=== PATIENT | female | born 1945 | race Caucasian/White ===

== ENCOUNTER 2023-04-26 08:02 | Outpatient (OUT) | payer MEDICARE, BC, SELFPAY ==
[2023-04-26 10:14] LABS: Alanine Aminotransferase 29 U/L (14-59); Aspartate Amino Transferase 22 U/L (15-37); Chol HDL Ratio 2.5; Cholesterol 175 mg/dL (<=200); HDL Cholesterol 70 mg/dL (40-60); Triglycerides 109 mg/dL (<=150); VLDL CHOLESTEROL 21.8 mg/dL
== END 2023-04-26 08:03 | disposition home or self-care (01) ==
LOC: LAB 08:02
PROVIDERS: PCP Family Medicine; Visit Provider Internal Medicine Cardiovascular Disease
DX: E78.5 Hyperlipidemia, unspecified (principal); Z91.81 History of falling
CPT/HCPCS: 36415; 80061; 84450; 84460

== ENCOUNTER 2023-07-30 07:49 | Outpatient (OUT) | payer MEDICARE, BC, SELFPAY ==
--- NOTE | 2023-07-30 07:59 | XR_ITS ---
[address] [address] Patient Name: KIRSTIN COREAS MRN: [id number] date: 1945 Sex: F Assigned Patient Location: [facility] Current Patient Location: [facility] Accession/Order Number: [id number] Exam Date: 07/30/2023 08:10 Report Date: 07/30/2023 09:08 At the request of: JOSE MANDUJANO Procedure: XR DEXA axial skeleton EXAMINATION: XR DEXA axial skeleton HISTORY: Osteoporosis M81.0 COMPARISON: DEXA bone densitometry 04/08/2020 TECHNIQUE: Dual-energy X-ray absorptiometry (DXA) was performed. FINDINGS: FOREARM ANALYSIS: Average bone mineral density is 0.484 g/cm2. T-score (standard deviation relative to young adult mean): -3.2 . -25.1% change since prior study. HIP ANALYSIS: Lowest bone mineral density is within the femoral neck, 0.807 g/cm2. T-score (standard deviation relative to young adult mean): -1.7 . -2.7% change since prior study. XR/XR DEXA axial skeleton IMPRESSION: [employer] [place] [employer] Classification: Osteoporosis - High Fracture Risk Electronically authenticated by: SELWYN PASCUAL Date: 07/30/2023 09:08
--- NOTE | 2023-07-30 07:59 | MM_ITS ---
Patient Name: KIRSTIN COREAS MR#: [id number] : 1945 Exam Date: 07/30/2023 Ordering Doctor: DR JOSE MANDUJANO M.D. RADIOLOGY REPORT PROCEDURE: MM TOMOSYNTHESIS SCREENING BI COMPARISON: MG MAMM SCREEN 3D EMMANUEL CAD, 07/23/2022. MG MAMM SCREEN 3D EMMANUEL CAD, 07/16/2021. MG MAMM SCREEN EMMANUEL W CAD, 04/08/2020. MAMMO POST BIOPSY UNILATERAL RIGHT, 11/11/2012. 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 LOCATION: [facility] BREAST COMPOSITION: Scattered areas fibroglandular density. FINDINGS: DIAGNOSTIC CATEGORY 2--BENIGN FINDING: RIGHT BREAST: No significant suspicious finding. Scattered benign-appearing calcifications are present. Scattered benign-appearing lymph nodes are present. Stable post biopsy scarring. No significant change has occurred. LEFT BREAST: No significant suspicious finding. Scattered benign-appearing lymph nodes are present. No significant change has occurred. RECOMMENDATIONS: ROUTINE MAMMOGRAM AND CLINICAL EVALUATION IN 12 MONTHS. PLEASE NOTE: A NORMAL MAMMOGRAM DOES NOT EXCLUDE THE POSSIBILITY OF BREAST CANCER. A CLINICALLY SUSPICIOUS PALPABLE LUMP SHOULD BE BIOPSIED. Dictated by: Ricky Gutierrez M.D. on 07/30/2023 at 13:54 Approved by: Ricky Gutierrez M.D. on 07/30/2023 at 14:03
--- NOTE | 2023-07-30 09:13 | CA_ITS ---
Patient Name: KIRSTIN COREAS MR#: [id number] : 1945 Exam Date: 07/30/2023 Ordering Doctor: DR JOSE MANDUJANO M.D. ECHOCARDIOGRAM REPORT PROCEDURE: CA ECHO DOPPLER COMPLETE INDICATIONS: Cardiac murmur, h/o myocardial infarction, hypertension COMPARISON: None. DESCRIPTION: COMPLETE ECHOCARDIOGRAM Real-time transthoracic echocardiography with 2D, M-mode, spectral and color flow Doppler performed. QUALITY: Technical quality was good. LEFT VENTRICLE: Normal chamber size. Proximal septal hypertrophy (sigmoid septum). LV EF: Global left ventricular systolic function is normal; visually estimated ejection fraction is 55 to 60%. No significant wall motion abnormalities. DIASTOLIC: Diastolic function is indeterminate. ATRIAL SEPTUM: Visually appears intact. LEFT ATRIUM: Severe dilatation. RIGHT ATRIUM: Mild dilatation. RIGHT VENTRICLE: Normal chamber size. Normal right ventricular systolic function. TRICUSPID VALVE: Normal mobility and thickness. No stenosis with trivial regurgitation. No evidence of pulmonary hypertension. RVSP 32 mmHg MITRAL VALVE: The posterior leaflet is thickened and calcified with reduced mobility. Moderate mitral annular calcification. Unable to assess presence of mitral stenosis due to lack of pressure gradients. Mild mitral regurgitation. AORTIC VALVE: Normal trileaflet appearance. Mildly calcified aortic valve. Normal leaflet mobility. No evidence of aortic valve stenosis. Mild aortic regurgitation. AORTIC ROOT: Normal diameter and appearance. PULMONIC VALVE: Normal thickness and mobility. No stenosis. Trivial regurgitation. PERICARDIUM: Anterior free space; trivial effusion versus fat pad. IVC: Collapses with inspirations. CONCLUSION: 1. Global left ventricular systolic function is normal; visually estimated ejection fraction is 55 to 60% 2. Right ventricle is normal in size and systolic function 3. Biatrial enlargement 4. Diastolic function is indeterminate 5. The posterior mitral leaflet is thickened and calcified with reduced mobility. 6. Mild mitral regurgitation 7. Mild aortic valve regurgitation 8. Anterior free space; trivial effusion versus fat pad Adult Echocardiography Procedure Report Left Ventricle LVEDD (3.7 - 5.6 cm): 4.98 cm LVESD (2.2 - 4.0 cm): 3.47 cm LVIVS thickness (0.6 - 1.2 cm): 0.91 cm LVPW thickness (0.5 - 1.0 cm): 1.00 cm e': 0.07 m/s E - e': 13.44 LVOT Max Gradient: 3.84 mm[Hg] LVOT Area (cm2): 0.98 m/s Peak Velocity (LVOT): 0.98 m/s LVOT Diameter 2.02 cm Left Atrium LA Volume Index (2D A2C): 56.43 ml/m2 Left Atrium Systolic Dimension: 3.71 cm Mitral Valve MV E to A Ratio: 0.92 Mitral Valve A-Wave Peak Velocity: 1.02 m/s Mitral Valve E-Wave Peak Velocity: 0.93 m/s Right Ventricle Aorta AO Root Diam: 2.88 cm Ascending Ao Diam: 3.05 cm Aortic Valve AoV Area (Peak Ambrocio): 2.29 cm2, 2.29 cm2 Peak Velocity(Antegrade Flow): 1.37 m/s Peak Gradient(Antegrade Flow): 7.46 mm[Hg] Tricuspid Valve Peak Velocity (Regurgitant Flow): 2.50 m/s, 2.53 m/s Pulmonic Valve Peak Velocity: 0.67 m/s Peak Gradient: 1.90 mm[Hg], 1.67 mm[Hg] Right Atrium Right Atrium Systolic Pressure: 46.44 ml, 46.44 ml Dictated by: Eddie Concepcion M.D. on 08/02/2023 at 17:02 Approved by: Eddie Concepcion M.D. on 08/02/2023 at 17:08
== END 2023-07-30 07:50 | disposition home or self-care (01) ==
LOC: MAMMO 07:49
PROVIDERS: PCP Family Medicine; Visit Provider Family Medicine
DX: R01.1 Cardiac murmur, unspecified (principal); M81.0 Age-related osteoporosis without current pathological fracture; Z12.31 Encounter for screening mammogram for malignant neoplasm of breast; Z80.3 Family history of malignant neoplasm of breast; I08.0 Rheumatic disorders of both mitral and aortic valves
CPT/HCPCS: 77063; 77067; 77080; 93306

== ENCOUNTER 2024-07-31 11:24 | Outpatient (OUT) | payer OTHER, SELFPAY ==
--- NOTE | 2024-07-31 11:27 | MM_ITS ---
Patient Name: KIRSTIN COREAS MR#: [id number] : 1945 Exam Date: 07/31/2024 Ordering Doctor: DR JOSE MANDUJANO M.D. RADIOLOGY REPORT PROCEDURE: MM TOMOSYNTHESIS SCREENING BI COMPARISON: MM TOMOSYNTHESIS SCREENING BI, 07/30/2023. MG MAMM SCREEN 3D EMMANUEL CAD, 07/23/2022. 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 LOCATION: [facility] BREAST COMPOSITION: There are scattered areas of fibroglandular density. FINDINGS: DIAGNOSTIC CATEGORY 2--BENIGN FINDING. NO CHANGE FROM COMPARISON. Scattered benign-appearing calcifications are present. Scattered benign-appearing nodules are present. RIGHT BREAST: No significant suspicious finding. Linear scar marker 12 o'clock right mid breast area of architectural distortion with calcifications and micro clip marker upper inner quadrant, posterior breast is stable. LEFT BREAST: No significant suspicious finding. RECOMMENDATIONS: ROUTINE MAMMOGRAM AND CLINICAL EVALUATION IN 12 MONTHS. PLEASE NOTE: A NORMAL MAMMOGRAM DOES NOT EXCLUDE THE POSSIBILITY OF BREAST CANCER. A CLINICALLY SUSPICIOUS PALPABLE LUMP SHOULD BE BIOPSIED. Dictated by: Raffaele Arciniega MD on 07/31/2024 at 13:00 Approved by: Raffaele Arciniega MD on 07/31/2024 at 13:02
== END 2024-07-31 11:25 | disposition home or self-care (01) ==
LOC: MAMMO 11:24
PROVIDERS: PCP Family Medicine; Visit Provider Family Medicine
DX: Z12.31 Encounter for screening mammogram for malignant neoplasm of breast (principal); Z85.3 Personal history of malignant neoplasm of breast; Z80.3 Family history of malignant neoplasm of breast
CPT/HCPCS: 77063; 77067

== ENCOUNTER 2025-08-02 10:27 | Outpatient (OUT) | payer OTHER, SELFPAY ==
--- OUTSIDE RECORDS SUMMARY | 2025-08-02 10:30 | XMS_ITS | Clinical Summary ---
Author Organization [facility] Address [address] [place] [address] Phone Care Team Providers Care Ios Architect Name Role Phone Nani Bianchi MD Primary Care Provider [phone] Allergies Active AllergyReactionsCriticalityNoted DateCommentsAce InhibitorsCough 08/18/20239576KitzyogyVolhs16/29/2023arvedilolDizziness,Other08/18/2023 Oxycodone-AcetaminophenConfusion,Udxfczuslbytah07/29/2023 Medications MedicationSigDispense QuantityRefillsLast FilledStart DateEnd DateStatus aspirin 81 mg EC tablet Take 1 tablet (81 mg) by mouth once daily.01/29/2022ctive celecoxib (CeleBREX) 200 mg capsule Take 1 capsule (200 mg) by mouth once daily.Active FLUoxetine (PROzac) 20 mg capsule Take 1 capsule (20 mg) by mouth once daily.12/25/2019Active latanoprost (Xalatan) 0.005 % ophthalmic solution Administer 1 drop into both eyes once daily at bedtime.11/02/2022ctive omeprazole (PriLOSEC) [address] capsule Take 1 capsule (20 mg) by mouth once daily in the morning. Take before meals. Active therapeutic mafkucsnriwn-tjrs-selrqsks (Theragran-M) tablet Take 1 tablet by mouth once daily.Active albuterol 90 mcg/actuation inhaler Inhale 2 puffs every 6 hours if needed for wheezing.Active biotin 5 mg tablet Take 1 tablet (5 mg) by mouth once daily.Active CALCIUM-VITAMIN D3-MAGNESIUM ORAL Take 1 tablet by mouth early in the morning..Active amLODIPine (Norvasc) 5 mg tablet Indications:Primary hypertensionTake 1 tablet (5 mg) by mouth once daily. 90 tablet 2:31 PM EDT15Active atorvastatin (Lipitor) 80 mg tablet Indications:Hyperlipidemia, unspecified hyperlipidemia typeTake 1 tablet (80 mg) by mouth once daily. 90 tablet 11:29 AM EDT/ctive Active Problems ProblemNoted DateDiagnosed DateBMI 26.0-26.9,adult02/06/2025Encounter for vitamin deficiency oefqgkanm98/20/2025Overweight with body mass index (BMI) of 27 to 27.9 in adult01/27/2024Former bdpwgh8701/27/2024rteriosclerosis of coronary cpzsuh7008/18/20238102Govxtzyuueugnc48/29/3435Rbgvqrqtpzrw15/29/2023alpitations 08/18/2023 Immunizations ImmunizationAdministration DatesNext DueFlu vaccine, trivalent, preservative free, HIGH-DOSE, age 65y+ (Fluzone)06/15/2022,06/03/2021,05/08/2020Influenza, Ynrjkvuvzzp26/01/2020,06/20/2019Pneumococcal conjugate vaccine, 13-valent (PREVNAR 13)09/20/2015Pneumococcal polysaccharide vaccine, 23-valent, age 2 years and older (PNEUMOVAX 23)09/20/2016 Social History Tobacco UseTypesPacks/DayYears UsedDateSmoking Tobacco: FormerCigarettes Smokeless Tobacco: NeverAlcohol UseStandard Drinks/WeekCommentsNot Currently0 (1 standard drink = 0.6 oz pure alcohol)CommentsUnknownSex and Gender InformationValueDate RecordedSex Assigned at BirthNot on fileLegal SexFemale 08/15/2022 5:16 AM ESTGender IdentityNot on fileSexual OrientationNot on file Last Filed Vital Signs Vital SignReadingTime TakenCommentsBlood Gmylpstc925/6005 11:13 AM EDT Dqvmo604102/06/2025 11:13 AM EDTTemperature--Respiratory Rate--Oxygen Saturation-- Inhaled Oxygen Concentration--Lpiigw83.4 kg (128 lb 12.8 oz)02/06/2025 11:13 AM CHXTjhfmu973.9 cm (4' 11 )02/06/2025 11:13 AM EDTBody Mass Index26.01002/06/2025 11:13 AM EDT Plan of Treatment DateTypeDepartmentCare Team (Latest Contact Info)Czjmdwksxyi89/27/2026 2:00 PM EDTOffice Visit [facility] [address] [facility] [address] [place] [address] Maty Hernandez MD [address] [place] [address] Health MaintenanceDue DateLast DoneCommentsLipid Panel3Diabetes Mgizwuudy62/13/1961DTaP/Tdap/Td Vaccines (1 - Tdap)Zoster Vaccines (2 of 3)RSV High Risk: (Elderly (60+) or Population) (1 - 1-dose 75+ series)2018Medicare Annual Wellness Visit (AWV), 07/21/2021, 03/14/2020, Additional history exists Influenza Vaccine (#1)/04/2024, 06/15/2023, 06/15/2022, Additional history existsCOVID-19 Vaccine ( season)/04/2024, 09/05/2023, 07/11/2022, Additional history existsBone Density Scan07/30/2025 07/30/2023, 04/08/2020, 04/08/2020, Additional history existsPneumococcal JzmljzzTvyeklsso33/01/2017, 09/20/2015, 06/17/2015, Additional history exists Welcome to Medicare KtnkjOuxurucazjdu67/17/2023, 07/21/2021, 03/14/2020, Additional history existsHIB VaccinesAged OutNo longer eligible based on patient's age to complete this topicHPV VaccinesAged OutNo longer eligible based on patient's age to complete this topicHepatitis A VaccinesAged OutNo longer eligible based on patient's age to complete this topicHepatitis B VaccinesAged OutNo longer eligible based on patient's age to complete this topicIPV Vaccines Aged OutNo longer eligible based on patient's age to complete this topic Meningococcal VaccineAged OutNo longer eligible based on patient's age to complete this topicRotavirus VaccinesAged OutNo longer eligible based on patient's age to complete this topic Insurance Care Teams Team MemberRelationshipSpecialtyStart DateEnd Date Nani Bianchi MD [address] [facility] [address] [place] [address] [facility]09/20/05
--- OUTSIDE RECORDS SUMMARY | 2025-08-02 10:30 | XMS_ITS | Clinical Summary ---
Author Organization [facility] Healthcare Address [address] [place] [address] Care Team Providers Care Gasoline Attendant Name Role Phone Nani Bianchi MD Primary Care Provider [phone] Nani Bianchi MD Unavailable Allergies Active AllergyReactionsCriticalityNoted HnlyDsudzhyqLuozwiapXwzzr76/29/2023 CarvedilolDizziness,Other08/18/20235745VnyqlmrfluGatqHcn84/16/2023Metronidazole 07/05/2023 Other Reaction(s): Unknown Oxycodone-AcetaminophenOther,Wroyyypasygxxr22/29/2023 Medications MedicationSigDispense QuantityRefillsLast FilledStart DateEnd DateStatus amLODIPine (Norvasc) 5 MG tablet Take 5 mg by mouth in the morning.02/24/2023ctive aspirin 81 MG chewable tablet 1 (one) time each day at the same time.Active biotin 1000 MCG tablet 1 (one) time each day at the same time.Active omeprazole (PriLOSEC) [address] capsule 1 capsule 1 (one) time each day at the same time.Active latanoprost (Xalatan) 0.005 % ophthalmic solution 1 drop at bedtime.Active Multiple Vitamin (Thera-Tabs) tablet Take 1 tablet by mouth in the morning.Active Jlargck-Bjfvgayrz-Pzkdlzd D (CALCIUM 1200+D3 PO) Take by mouthActive ascorbic acid (Vitamin C) 500 MG ER capsule Take 500 mg by mouth DailyActive albuterol HFA 90 mcg/act inhaler Indications:Former smokerINHALE 1 PUFF BY MOUTH EVERY 4 HOURS NEEDED 8.5 g ctive celecoxib (CeleBREX) 200 MG capsule Indications:Chronic right shoulder painTAKE 1 CAPSULE BY MOUTH IN THE MORNING 100 capsule ctive FLUoxetine (PROzac) 20 MG capsule Indications:Depressive disorderTAKE 1 TABLET BY MOUTH IN THE MORNING 100 capsule ctive atorvastatin (Lipitor) 80 MG tablet Indications:Pure hypercholesterolemiaTake 1 tablet (80 mg) by mouth at bedtime 90 tablet 01/22/2025tive Active Problems ProblemNoted DateDiagnosed DateMajor depressive disorder, single episode, in full iwbpasibb25/16/2025 Assessment & Plan (06/05/2025 10:41 AM EDT): This is a chronic medical condition that is stable since last assessment. No changes in treatment are suggested at this time. Continue Current meds. History of breast pvxgvq7104/28/2024Overweight with body mass index (BMI) of 27 to 27.9 in adult01/27/2024Former jbkdty2101/27/2024bnormal glucose tolerance test 07/06/2023Other yckjsyz7707/06/2023 Assessment & Plan (07/06/2023 2:33 PM EDT): CBC ordered B12 supplements Routine general medical examination at health care nhyzfvcf20/17/2023 Assessment & Plan (06/05/2025 10:40 AM EDT): Colonoscopy every 10 years or Cologuard every 3 years ages 50-75 Flu Vaccine yearly Pneumovax and Prevnar Mammo yearly for women and PSA yearly for men Labs/Screening yearly to rule out Diabetes, Chronic Kidney disease and liver disease Hepatitis Screen forat risk populations Shingles vaccine after65 if indicated Tetanus Vaccine every 10 years Lipids yearly under the age of 75 If Smoking history: one time CT scan of chest and Ultrasound of Aorta to screen for Anuerysm Assessment & Plan (05/15/2024 9:43 AM EDT): Colonoscopy every 10 years or Cologuard every 3 years ages 50-75 Flu Vaccine yearly Pneumovax and Prevnar Mammo yearly for women and PSA yearly for men Labs/Screening yearly to rule out Diabetes, Chronic Kidney disease and liver disease Hepatitis Screen forat risk populations Shingles vaccine after65 if indicated Tetanus Vaccine every 10 years Lipids yearly under the age of 75 If Smoking history: one time CT scan of chest and Ultrasound of Aorta to screen for Anuerysm Mucopurulent chronic ahlrivjcla55/17/2023Murmur, etblxow6107/06/2023rthritis of glenohumeral joint07/05/2023rthritis of left acromioclavicular joint07/05/2023 Benign essential srguarlnktjz28/16/2023 Assessment & Plan (05/15/2024 9:42 AM EDT): Our specific goals, for your hypertension, is to keep your blood pressure less than 140/90, and theimportance of weight control. We made recommendations on how to control your blood pressure, and minimize your risk of these copmplications. We also discussed your current barriers to a healthy living and importance of healthy diet and exercise. Prior to your visit today we have reviewed your chart and formed a plan to assist with providing you the best possible care. We reviewed the possible complications of hypertension including, stroke, heart failure and kidney impairment. In addition, we discussed your medications, the importance of taking them as prescribed. [employer] diet handouts Assessment & Plan (07/06/2023 2:32 PM EDT): Our specific goals, for your hypertension, is to keep your blood pressure less than 140/90, and theimportance of weight control. We made recommendations on how to control your blood pressure, and minimize your risk of these copmplications. We also discussed your current barriers to a healthy living and importance of healthy diet and exercise. Prior to your visit today we have reviewed your chart and formed a plan to assist with providing you the best possible care. We reviewed the possible complications of hypertension including, stroke, heart failure and kidney impairment. In addition, we discussed your medications, the importance of taking them as prescribed. [employer] diet handouts Degenerative disc disease, pjecqh274836Vpudzjdo42/16/2023 Assessment & Plan (07/06/2023 2:37 PM EDT): Sees building specialist Has eye drops Chronic right shoulder pain07/05/2023 Assessment & Plan (07/06/2023 2:32 PM EDT): Celecoxib sent in Primary osteoarthritis, right sowhhjkp56/16/2023ure hypercholesterolemia 07/05/2023 Assessment & Plan (05/15/2024 9:42 AM EDT): Labs ordered This is a chronic medical condition that is stable since last assessment. No changes in treatment are suggested at this time. Continue Current meds. Assessment & Plan (07/06/2023 2:33 PM EDT): Continue Atorvastatin This is a chronic medical condition that is stable since last assessment. No changes in treatment are suggested at this time. S/p reverse total shoulder putlvxopuvbq49/16/2023Scoliosis of thoracolumbar spine07/05/20235989Srrgnwa40/11/2023oronary znknofgrrrqkekm42/03/2012 Cardiomyopathy, vblomvidhkw30/03/2012 Assessment & Plan (06/05/2025 10:40 AM EDT): This is a chronic medical condition that is stable since last assessment. No changes in treatment are suggested at this time. Continue Current meds. F/Up with Cardiology as scheduled Assessment & Plan (05/15/2024 9:44 AM EDT): Control BP and currently no CHF sxs Gastroesophageal reflux krzcvvv9601/21/2012Chronic ischemic heart disease 01/21/20124763Ircpbswazvbz05/13/2008Depressive qegybgqe48/21/2008 Resolved Problems ProblemNoted DateDiagnosed DateResolved Date3-vessel CAD/05/2024 Armbovhyt85/05/2024Malignant neoplasm of breast (female)05/10/2008 04/28/2024 Encounters DateTypeDepartmentCare SrnuAfloezbuojb09/18/2025bstract [facility] [address] [place] [address] Nani Bianchi MD 06/05/2025 10:30 AM EDTOffice Visit [facility] [address] [place] [address] Nani Bianchi MD Routine general medical examination at health care facility (Primary Dx); Major depressive disorder, single episode, in full remission ; Cardiomyopathy, unspecified (HCC); Encounter for immunization; Estrogen deficiency; Encounter for screening mammogram for breast kpxnwz2406/05/2025amboo flowsheet [facility] [address] [place] [id number] Nani Bianchi MD 06/05/2025Travelfrom Last 3 Months Immunizations ImmunizationAdministration DatesNext DueInfluenza, High Dose Seasonal, Preservative Free06/27/2024,06/28/2018,06/25/2017Influenza, High-dose Seasonal, Quadrivalent, Preservative Free06/05/2025,06/15/2023,06/15/2022,06/03/2021 Influenza, injectable, quadrivalent, preservative free07/19/2017,06/17/2015 Influenza, seasonal, titbjcalvs67/01/2020,05/08/2020,07/10/2003Influenza, seasonal, intradermal, preservative free06/20/2016,06/12/2014Pneumococcal Conjugate PCV 13009/20/2015,06/17/2015Pneumococcal Polysaccharide PPSV23 09/20/2016,06/20/20137950ABCL-RKV-8 (COVID-19) vaccine, mRNA, spike protein, LNP, bivalent, preservative free, 30 mcg/0.3 mLdose, denice-sucrose formulation 07/11/2022TD (adult), 2 Lf tetanus toxoid, preservative free, ufeyfxpk23/28/2012 Zoster, live06/20/2013 Family History Medical HistoryRelationNameCommentsHeart diseaseFatherHypertensionFatherHeart diseaseMotherRelationNameStatusCommentsFatherDeceasedMotherDeceased Social History Tobacco UseTypesPacks/DayYears UsedDateSmoking Tobacco: NeverSmokeless Tobacco: NeverAlcohol UseStandard Drinks/WeekCommentsYes1 (1 standard drink = 0.6 oz pure alcohol)caffeine: coffee,teaPHQ-2AnswerDate RecordedPatient Health Questionnaire-2 Yiiig765CommentsUnknownSex and Gender InformationValueDate RecordedSex Assigned at WyhshJeegnu41/21/2023 8:38 AM EDT Legal KksPuxgts92/15/2023 6:35 PM EDTGender LydeowxkDhpevk05/21/2023 8:38 AM EDT Sexual DflgkwzppktGwbhqcha24/21/2023 8:38 AM EDT Last Filed Vital Signs Vital SignReadingTime TakenCommentsBlood Ldopmrkl063/66006/05/2025 10:22 AM EDT Uvvmk771006/05/2025 10:22 AM EVZKqrqygqieid03.6 ??C (99.7 ??F)04/28/2024 10:59 AM EDTRespiratory Gifj9884 10:59 AM EDTOxygen Lajjfgacxf53%06/05/2025 10:22 AM EDTInhaled Oxygen Concentration--Muyfrd92.4 kg (120 lb)06/05/2025 10:22 AM NCKXkuiyp862.9 cm (4' 11 )06/05/2025 10:22 AM EDTBody Mass Index24.24006/05/2025 10:22 AM EDT Plan of Treatment Health MaintenanceDue DateLast DoneCommentsCOVID-19 Vaccine ( season) , 12/27/2021, 06/14/2021, Additional history existsMedicare Annual Wellness (AWV), 05/15/2024, 07/06/2023neumococcal Vaccine: 65+ OpsccLyppgrgyk05/01/2017, 09/20/2015, 06/17/2015, Additional history existsInfluenza LgazmynXhzqqhxbx80/16/2025, 06/27/2024, 06/15/2023, Additional history exists Procedures Procedure NamePriorityDate/TimeAssociated DiagnosisCommentsVITAMIN D 1,25 GQQLDOWVKRhajawe36/24/2025 8:58 AM EDT Routine general medical examination at health care facility Cardiomyopathy, unspecified (HCC) LIPID XLFZHPvcgykn74/24/2025 8:58 AM EDT Routine general medical examination at [facility] Cardiomyopathy, unspecified (HCC) COMPREHENSIVE METABOLIC VHADDLpnefxr85/24/2025 8:58 AM EDT Routine general medical examination at [facility] Cardiomyopathy, unspecified (HCC) QZGIfrohpt23/24/2025 8:58 AM EDT Routine general medical examination at [facility] Cardiomyopathy, unspecified (HCC) from Last 3 Months Results * Vitamin D 1,25 dihydroxy (06/13/2025 8:58 AM EDT)ComponentValueRef RangeTest MethodAnalysis TimePerformed AtPathologist SignatureVITAMIN D, 1,25 (OH)2, WEAGN6742 - 72 pg/mLQUESTVITAMIN D3, 1,25 (OH)232pg/mLQUESTVITAMIN D2, 1,25 (OH)2<8pg/mLQUESTComment: Vitamin D3, 1,25(OH)2 indicates both endogenous production and supplementation. Vitamin D2, 1,25(OH)2 is an indicator of exogenous sources, such as diet or supplementation. ??Interpretation and therapy are based on measurement of Vitamin D,1,25(OH)2, Total. This test was developed and its analytical performance characteristics have been determined by [facility] [place], [place]. It has not been cleared or approved by the FDA. This assay has been validated pursuant to the CLIA regulations and is used for clinical purposes. Specimen (Source)Anatomical Location / LateralityCollection Method / Volume Collection TimeReceived TimeBloodVenous blood specimen / Ykvifig1106/13/2025 8:58 AM EDT06/13/2025 3:38 PM EDT Narrative [facility] - 06/17/2025 3:56 PM EDT FASTING:YES FASTING: YES Resulting Agency Comment Performing Organization Information ?Site ID: AMD ?Name: [facility] ?Address: [address] [place] [address] [place], [place] ?Director: Luis Antonio Simon M.D.,PhD Authorizing ProviderResult TypeResult StatusNani RAMIREZ BLOOD ORDERABLES Final ResultPerforming OrganizationAddressCity/State/ZIP CodePhone Number [facility] * (ABNORMAL) CBC (06/13/2025 8:58 AM EDT)ComponentValueRef RangeTest Method Analysis TimePerformed AtPathologist SignatureWHITE BLOOD CELL COUNT4.63.8 - 10.8 Thousand/uLQUESTRED BLOOD CELL COUNT3.913.80 - 5.10 Million/uLQUEST SCQYZIRMEE93.6(L)11.7 - 15.5 g/xPQSCVCBNZEKEQGQK80.535.0 - 45.0 %WXNIWWEQ93.8 80.0 - 100.0 mHCQVFLDDG88.727.0 - 33.0 xcIQOSCNVBQ66.732.0 - 36.0 g/dLQUEST Comment: For adults, a slight decrease in the calculated MCHC value (in the range of 30 to 32 g/dL) is most likely not clinically significant; however, it should be interpreted with caution in correlation with other red cell parameters and the patient's clinical condition. RDW12.511.0 - 15.0 %QUESTPLATELET YFLRR272178 - 400 Thousand/bXLNEMXLVS11.57.5 - 12.5 fLQUESTSpecimen (Source)Anatomical Location / LateralityCollection Method / VolumeCollection TimeReceived TimeBloodVenous blood specimen / Ssaknmz9306/13/2025 8:58 AM EDT06/13/2025 3:38 PM EDT Narrative [facility] - 06/17/2025 3:56 PM EDT FASTING:YES FASTING: YES Resulting Agency Comment Performing Organization Information ?Site ID: QTW ?Name: [facility] ?Address: [address] [place] [phone] ?Director: Lary Adkins Authorizing ProviderResult TypeResult StatusNani RAMIREZ BLOOD ORDERABLES Final ResultPerforming OrganizationAddressCity/State/ZIP CodePhone Number [facility] * Lipid panel (06/13/2025 8:58 AM EDT)ComponentValueRef RangeTest MethodAnalysis TimePerformed AtPathologist SignatureCHOLESTEROL, TIVGW331<200 mg/dLQUESTHDL XWUHWMUXNZZ80> OR = 50 mg/mMNIBLYPXIZNTASGRJSR75<150 mg/dLQUESTLDL CHOLESTEROL 51mg/dL (calc)QUESTComment: Reference range: <100 Desirable range <100 mg/dL for primary prevention; <70 mg/dL for patients with CHD or diabetic patients with > or = 2 CHD risk factors. LDL-C is now calculated using the Brayden calculation, which is a validated novel method providing better accuracy than the Friedewald equation in the estimation of LDL-C. Uvaldo SS et al. CHANDLER. 2013;310(19): 5069-0880 (http://education.[employer]/faq/WAB758) CHOL/HDLC RATIO2.2<5.0 (calc)QUESTNON HDL MBQIJWOTFHO36<130 mg/dL (calc)QUEST Comment: For patients with diabetes plus 1 major ASCVD risk factor, treating to a non-HDL-C goal of <100 mg/dL (LDL-C of <70 mg/dL) is considered a therapeutic option. Specimen (Source)Anatomical Location / LateralityCollection Method / Volume Collection TimeReceived TimeBloodVenous blood specimen / Dzvemjl6506/13/2025 8:58 AM EDT06/13/2025 3:38 PM EDT Narrative [facility] - 06/17/2025 3:56 PM EDT FASTING:YES FASTING: YES Resulting Agency Comment Performing Organization Information ?Site ID: QPT ?Name: [facility] ?Address: [address] [place] [address], [address] [place] [phone] ?Director: Salvatore Viera MD Authorizing ProviderResult TypeResult StatusNani Bianchi MDLAB BLOOD ORDERABLES Final ResultPerforming OrganizationAddressCity/State/ZIP CodePhone Number [facility] * Comprehensive metabolic panel (06/13/2025 8:58 AM EDT)ComponentValueRef Range Test MethodAnalysis TimePerformed AtPathologist VwcbzqlrnXvepupz2985 - 99 mg/dLQUESTComment: ? Fasting reference interval BUN97 - 25 mg/dLQUESTCreatinine0.660.60 - 0.95 mg/sMAVDNVGVJX37> OR = 60 mL/min/1.60j6CCTZSIFU/CREATININE RATIOSEE NOTE: (calc)QUESTComment: ?? Not Reported: BUN and Creatinine are within ?? reference range. ? Svtzfn551150 - 146 mmol/LQUESTPotassium, Bld4.63.5 - 5.3 mmol/ZKTFOQGamioghs963 98 - 110 mmol/LQUESTCarbon Tbwlzrw1739 - 32 mmol/LQUESTCalcium9.38.6 - 10.4 mg/dLQUESTPROTEIN, TOTAL6.36.1 - 8.1 g/dLQUESTALBUMIN4.13.6 - 5.1 g/dLQUEST GLOBULIN2.21.9 - 3.7 g/dL (calc)QUESTALBUMIN/GLOBULIN RATIO1.91.0 - 2.5 (calc) QUESTBILIRUBIN, TOTAL0.50.2 - 1.2 mg/dLQUESTALKALINE FBZDASAFIXA8784 - 153 U/L TFEYNQIC1346 - 35 U/ITSSBOOEL437 - 29 U/LQUESTSpecimen (Source)Anatomical Location / LateralityCollection Method / VolumeCollection TimeReceived TimeBlood Venous blood specimen / Amitxfs9506/13/2025 8:58 AM EDT06/13/2025 3:38 PM EDT Narrative [facility] - 06/17/2025 3:56 PM EDT FASTING:YES FASTING: YES Resulting Agency Comment Performing Organization Information ?Site ID: QTW ?[facility] ?Address: [address] [place] [phone] ?Director: Lary Adkins Authorizing ProviderResult TypeResult StatusNani RAMIREZ BLOOD ORDERABLES Final ResultPerforming OrganizationAddressCity/State/ZIP CodePhone Number [facility] from Last 3 Months Insurance Care Teams Team MemberRelationshipSpecialtyStart DateEnd Date Nani Bianchi MD [address] [address] PCP - [facility]01/26/23 Nani Bianchi MD [address] [address] PCP - [facility]09/20/23
--- NOTE | 2025-08-02 10:36 | MM_ITS ---
Patient Name: KIRSTIN COREAS MR#: [id number] : 1945 Exam Date: 08/02/2025 Ordering Doctor: DR JOSE MANDUJANO M.D. RADIOLOGY REPORT PROCEDURE: MM TOMOSYNTHESIS SCREENING BI COMPARISON: MM TOMOSYNTHESIS SCREENING BI, 07/31/2024. MM TOMOSYNTHESIS SCREENING BI, 07/30/2023. MG MAMM SCREEN 3D EMMANUEL CAD, 07/23/2022. MAMMO POST BIOPSY UNILATERAL RIGHT, 11/11/2012. 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 LOCATION: [facility] BREAST COMPOSITION: There are scattered areas of fibroglandular density. FINDINGS: RIGHT BREAST: No significant suspicious finding. LEFT BREAST: No significant suspicious finding. No vascular calcifications. Right lumpectomy changes. DIAGNOSTIC CATEGORY 1--NEGATIVE. RECOMMENDATIONS: ROUTINE MAMMOGRAM AND CLINICAL EVALUATION IN 12 MONTHS. Dictated by: John Pedroza DO on 08/02/2025 at 14:19 Approved by: John Pedroza DO on 08/02/2025 at 14:22
== END 2025-08-02 10:28 | disposition home or self-care (01) ==
LOC: MAMMO 10:27
PROVIDERS: PCP Family Medicine; Visit Provider Family Medicine
DX: Z12.31 Encounter for screening mammogram for malignant neoplasm of breast (principal); E28.39 Other primary ovarian failure; Z80.3 Family history of malignant neoplasm of breast; M81.0 Age-related osteoporosis without current pathological fracture; M85.88 Other specified disorders of bone density and structure, other site
CPT/HCPCS: 77063; 77067; 77080